=== PATIENT | female | born 1975 | race Caucasian/White ===

== ENCOUNTER 2021-03-17 07:38 | Outpatient (CLI) | payer OTHER, SELFPAY ==
--- NOTE | ~2021-03-17 | MM_ITS ---
EXAMINATION: MM screening spring BI w nghia HISTORY: Screening TECHNIQUE: Craniocaudal and mediolateral oblique 3-D tomosynthesis images were obtained and synthetic 2-D images were generated. CAD analysis was submitted and interpreted. COMPARISON: Comparison to multiple prior studies sequentially, with oldest reviewed study dated 05/11. BREAST PARENCHYMAL COMPOSITION: There are scattered areas of fibroglandular density. FINDINGS: There is no evidence of suspicious mass, calcification, or architectural distortion to sugg est malignancy in either breast. There has been no suspicious interval change. IMPRESSION: 1. No mammographic evidence of malignancy. 2. Recommend routine screening mammography in one year. BI-RADS Category 1: Negative Reviewed, dictated and finalized at location A.
== END 2021-03-17 07:39 | disposition home or self-care (01) ==
LOC: ANHIMG 07:41
PROVIDERS: PCP Family Medicine; Visit Provider Family Medicine
DX: Z12.31 Encounter for screening mammogram for malignant neoplasm of breast (principal)
CPT/HCPCS: 77063; 77067

== ENCOUNTER 2022-02-27 01:56 | Day surgery (SDC) | payer OTHER, SELFPAY ==
[2022-02-14 12:09] VITALS: BMI 32.5
[2022-02-27 09:30] VITALS: BP 136/71; PULSE 78; RESP 18; TEMP 35.8; O2SAT 99; BMI 31.9
--- NOTE | 2022-02-27 09:30 | WPDGICN ---
Assessment and Plan Assessment and plan (1) Encounter for screening colonoscopy: Code(s): Z12.11 - Encounter for screening for malignant neoplasm of colon Status: Acute Assessment and Plan: patient presents for neoplasia screening. Appears to be at average risk for colon polyps. Further recommendations will be given after endoscopy. (2) Rectal bleeding: Code(s): K62.5 - Hemorrhage of anus and rectum Status: Acute Assessment and Plan: Patient reports a few small episodes of bright red blood per rectum. This appears to be secondary to hemorrhoids in change in bowel habits. Plan is for fiber supplements in her diet. Further recommendations will be given after endoscopy. GI Consult Note Consult date/time: 02/27/22 09:30 HPI: Shanae Diego is a 46 year old female Presents for screening colonoscopy. Patient's current weight appetite bowel movements are normal. She denies abdominal pain.. Family history is noncontributory. Patient reports occasional bright red blood per rectum that has happened 3 times last month. She states this is associated with change in bowel habits and diarrhea stools. Patient has had no fever or recent travel. Review of Systems Review of Systems: All systems reviewed & are unremarkable except as noted in HPI and below PMFSH Past Medical History Medical History (Updated 02/27/22 @ 09:31 by Bright Santizo MD) Depression Diabetes type 2, controlled Hyperlipidemia Hypertension Surgical History Surgical History (Updated 02/24/22 @ 15:43 by North Granado DO) History of tubal ligation Family History Family History (Updated 04/12/17 @ 16:02 by DOCTOR UNKNOWN) Sibling Family history of gout Father Hypertension Grandparent Hypertension Family history of type 2 diabetes mellitus Family history of heart disease in male family member before age 55 Mother Family history of elevated blood lipids Family history of type 2 diabetes mellitus Family history of heart disease in male family member before age 55 Family history of osteoporosis Family history of malignant neoplasm of kidney Family history of diabetes mellitus in first degree relative Other Carcinoma of colon Depression Diabetes mellitus Family history of Alzheimer's disease Family history of cardiovascular disease Family history of chronic obstructive pulmonary disease Family history of congestive heart failure Family history of lung disease Family history of mental disorder Family history of obesity Social History Social History Smoking status: Never smoker Alcohol intake: never Substance use type: does not use Living arrangements: with family Spiritual care concerns: No Meds Home Medications and Allergies Home Medications Medication Instructions Recorded Confirmed Type aripiprazole 7.5 mg PO DAILY 02/14/22 02/27/22 History atorvastatin 20 mg PO DAILY 02/14/22 02/27/22 History cholecalciferol (vitamin D3) 350 mcg PO DAILY 02/14/22 02/27/22 History coenzyme Q10 [Co Q-10] 100 mg PO DAILY 02/14/22 02/27/22 History cranberry 1,000 mg PO BID 02/14/22 02/27/22 History diclofenac sodium 75 mg PO DAILY 02/14/22 02/27/22 History ertugliflozin [Steglatro] 15 mg PO DAILY 02/14/22 02/27/22 History famotidine [Pepcid] 20 mg PO DAILY 02/14/22 02/27/22 History lisinopril 10 mg PO DAILY 02/14/22 02/27/22 History loratadine 10 mg PO DAILY 02/14/22 02/27/22 History lysine [L-Lysine] 500 mg PO DAILY 02/14/22 02/27/22 History melatonin 20 mg PO HS PRN 02/14/22 02/27/22 History metformin 1,000 mg PO BID 02/14/22 02/27/22 History metformin 1,000 mg PO BID 02/14/22 02/27/22 History svybeeyojrzr-jff-mahb-FA-vit K 1 tablet PO DAILY 02/14/22 02/27/22 History [Adults Multivitamin] paroxetine HCl 40 mg PO DAILY 02/14/22 02/27/22 History sitagliptin [Januvia] 100 mg PO DAILY 02/14/22 02/27/22 History valacyclovir 1 mg PO DAILY 02/14/22 02/27/22 History Allerg
[2022-02-27] MEDS: LACTATED RINGERS 1,000 ML 150 ML IV CONT (09:41)
[2022-02-27 09:42] LABS: Glucose Point of Care 135 mg/dl (65-105)
--- NOTE | 2022-02-27 09:49 | WPDANESEPPF ---
Anes - Initial Pre Proc Eval Procedure: Operation Date: 02/27/22 10:30 Proposed Procedures p Screening Colonoscopy - Bright Santizo MD Date/Time: 02/27/22 09:49 Surgeon: Bright Santizo MD Pre Op Diagnosis: neoplasm screening Patient Data Age: 46 Gender: F Height: 1.75 m Weight: 98.1 kg Last Vital Signs Temp 96.5 F L 02/27/22 09:30 Pulse 78 02/27/22 09:30 Resp 18 02/27/22 09:30 BP 136/71 02/27/22 09:30 Pulse Ox 99 02/27/22 09:30 Allergies Allergy/AdvReac Type Severity Reaction Status Date / Time nitrofurantoin Allergy Mild Hives Verified 02/27/22 09:27 [From Macrobid] Penicillins Allergy Mild Hives Verified 02/27/22 09:27 Home Medications Medication Instructions Recorded Confirmed Type aripiprazole 7.5 mg PO DAILY 02/14/22 02/27/22 History atorvastatin 20 mg PO DAILY 02/14/22 02/27/22 History cholecalciferol (vitamin D3) 350 mcg PO DAILY 02/14/22 02/27/22 History coenzyme Q10 [Co Q-10] 100 mg PO DAILY 02/14/22 02/27/22 History cranberry 1,000 mg PO BID 02/14/22 02/27/22 History diclofenac sodium 75 mg PO DAILY 02/14/22 02/27/22 History ertugliflozin [Steglatro] 15 mg PO DAILY 02/14/22 02/27/22 History famotidine [Pepcid] 20 mg PO DAILY 02/14/22 02/27/22 History lisinopril 10 mg PO DAILY 02/14/22 02/27/22 History loratadine 10 mg PO DAILY 02/14/22 02/27/22 History lysine [L-Lysine] 500 mg PO DAILY 02/14/22 02/27/22 History melatonin 20 mg PO HS PRN 02/14/22 02/27/22 History metformin 1,000 mg PO BID 02/14/22 02/27/22 History metformin 1,000 mg PO BID 02/14/22 02/27/22 History zacffyrmwosr-jng-edze-FA-vit K 1 tablet PO DAILY 02/14/22 02/27/22 History [Adults Multivitamin] paroxetine HCl 40 mg PO DAILY 02/14/22 02/27/22 History sitagliptin [Januvia] 100 mg PO DAILY 02/14/22 02/27/22 History valacyclovir 1 mg PO DAILY 02/14/22 02/27/22 History Laboratory Tests 02/27/22 09:36 POC Capillary Glucose 135 mg/dl H mg/dl (65-105) Patient hx anesthesia problems: none Family hx anesthesia problems: none Results Review: All pre-operative results and documents have been reviewed as part of the pre-operative evaluation. [facility] Past Medical History Medical History (Updated 02/27/22 @ 09:31 by Bright Santizo MD) Depression Diabetes type 2, controlled Hyperlipidemia Hypertension Surgical History Surgical History (Updated 02/24/22 @ 15:43 by North Granado DO) History of tubal ligation Family History Family History (Updated 04/12/17 @ 16:02 by DOCTOR UNKNOWN) Sibling Family history of gout Father Hypertension Grandparent Hypertension Family history of type 2 diabetes mellitus Family history of heart disease in male family member before age 55 Mother Family history of elevated blood lipids Family history of type 2 diabetes mellitus Family history of heart disease in male family member before age 55 Family history of osteoporosis Family history of malignant neoplasm of kidney Family history of diabetes mellitus in first degree relative Other Carcinoma of colon Depression Diabetes mellitus Family history of Alzheimer's disease Family history of cardiovascular disease Family history of chronic obstructive pulmonary disease Family history of congestive heart failure Family history of lung disease Family history of mental disorder Family history of obesity Social History Social History Smoking status: Never smoker Alcohol intake: never Substance use type: does not use Living arrangements: with family Spiritual care concerns: No Anes - Eval Final PreProcedure Day of Procedure 02/27/22 09:49 Patient weight: obese Heart: regular rate and rhythm Lungs: clear to auscultation Airway: Mallampati scale class II Neurological: alert and oriented Last oral intake: >/= 8 hours ASA classification: III Emergent: no Anesthetic plan: proceed Anesthesia type and monitoring: general GIVS and standard monitoring Re
[2022-02-27 10:12] VITALS: BP 109/66; PULSE 83; RESP 22; O2SAT 98
[2022-02-27 10:22] VITALS: BP 125/75; PULSE 78; RESP 23; O2SAT 100
[2022-02-27 10:32] VITALS: BP 118/63; PULSE 76; RESP 22; O2SAT 100
== END 2022-02-27 10:40 | disposition home or self-care (01) ==
PROVIDERS: PCP Nurse Practitioner Family; Visit Provider Internal Medicine Gastroenterology
PROC: 0DJD8ZZ Inspection of Lower Intestinal Tract, Via Natural or Artificial Opening Endoscopic (ICD-10-PCS; CPT 45378; principal; 2022-02-27 10:30)
DX: Z12.11 Encounter for screening for malignant neoplasm of colon (principal); K62.5 Hemorrhage of anus and rectum; K57.30 Diverticulosis of large intestine without perforation or abscess without bleeding; K64.8 Other hemorrhoids; E11.9 Type 2 diabetes mellitus without complications; E78.5 Hyperlipidemia, unspecified; I10 Essential (primary) hypertension; F32.A Depression, unspecified
CPT/HCPCS: 45378; 82948; J2704; J7120

== ENCOUNTER 2024-04-22 07:17 | Outpatient (CLI) | payer OTHER, SELFPAY ==
--- NOTE | ~2024-04-22 | MM_ITS ---
EXAMINATION: MM screening spring BI w nghia HISTORY: Screening mammogram TECHNIQUE: Craniocaudal and mediolateral oblique 3-D tomosynthesis images were obtained and synthetic 2-D images were generated. CAD analysis was submitted and interpreted. COMPARISON: 03/17/2021, 06/16/2019 BREAST PARENCHYMAL COMPOSITION:Not Dense. The breasts are almost entirely fatty FINDINGS: No suspicious mass, calcification, or architectural distortion are identified in either ariadne ast to suggest malignancy. There has been no suspicious interval change. IMPRESSION: No mammographic evidence of malignancy. Recommend routine screening mammography in one year. BI-RADS Category 1: Negative Reviewed, dictated and finalized at location .
== END 2024-04-22 07:18 | disposition home or self-care (01) ==
LOC: ANHIMG 07:18
PROVIDERS: PCP Nurse Practitioner Family; Visit Provider Nurse Practitioner Family
DX: Z12.31 Encounter for screening mammogram for malignant neoplasm of breast (principal)
CPT/HCPCS: 77063; 77067

== ENCOUNTER 2025-05-07 08:08 | Outpatient (CLI) | payer OTHER, SELFPAY ==
--- NOTE | ~2025-05-07 | MM_ITS ---
EXAMINATION: MM screening [facility] BI w nghia HISTORY: Screening mammogram TECHNIQUE: Craniocaudal and mediolateral oblique 3-D tomosynthesis images were obtained and synthetic 2-D images were generated. CAD analysis was submitted and interpreted. COMPARISON: 04/22/2024, 03/17/2021, 06/16/2019 BREAST PARENCHYMAL COMPOSITION:Not Dense. There are scattered areas of fibroglandular density. FINDINGS: No suspicious mass, calcification, or architectural distortion are identified in either ariadne ast to suggest malignancy. There has been no suspicious interval change. IMPRESSION: No mammographic evidence of malignancy. Recommend routine screening mammography in one year. BI-RADS Category 1: Negative Reviewed, dictated and finalized at location .
--- OUTSIDE RECORDS SUMMARY | 2025-05-07 08:13 | XMS_ITS | Encounter Summary ---
Author Organization [facility] Address Pending sale to [facility] [place] [address] Care Team Providers Care Outpatient Physical Therapist Name Role Phone Kaylin Rosales Primary Care Provider [phone] Encounter Details Date Type Department Care Team (Late st Contact Info) Description 11/04/2021 Noemalifehart Message Enc [facility] Medical Group Family & Internal Medicine [facility] [address] [place] [address] Kaylin Rosales FNP [address] [place] [address] Question regarding CBC W/DIFF AUTOMATED Social History Tobacco Use Types Packs/Day Years Used Date Smoking Tobacco: Never Smokeless Tobacco: Never Alcohol Use Standard Drinks/Week Comments Not Currently 0 (1 standard drink = 0.6 oz pur e alcohol) PHQ-2 Answer Date Recorded PHQ-2 Score - If the patient scores above 3, please move on to questions 3-9 1 10/04/2021 Comments No Sex and Gender Information Value Date Recorded Sex Assigned at Female 01/23/2025 8:00 AM CDT Legal Sex Female 9:53 AM COMPENSATION AND BENEFITS MANAGER Gender Identity Female 11/07/2021 9:54 AM COMPENSATION AND BENEFITS MANAGER Sexual Orientation Straight 11/07/2021 9: 54 AM COMPENSATION AND BENEFITS MANAGER COVID-19 Exposure Response Date Recorded In the last month, have you been in contact with someone who was confirmed or suspected to have Coronavirus / COVID-19? No / Unsure 11/04/2021 7:04 AM COMPENSATION AND BENEFITS MANAGER documented as of this encounter Plan of Treatment Not on file documented as of this encounter Visit Diagnoses Not on filedocumented in this encounter Additional Health Concerns Infection Onset Date Last Indicated Resolved Time COVID-19 Rule Out 03/20/2022 03/20/2022 03/20/2022 12:32 PM CDT COVID-19 Rule Out 03/20/2022 03/20/2022 03/21/2022 2:07 PM CDT Assessment Noted Time PHQ-9 Depression Total Score: 1 10/04/20 21 2:55 PM COMPENSATION AND BENEFITS MANAGER documented as of this encounter Care Teams Outpatient Physical Therapist Relationship Specialty Start Date End Date Kaylin Rosales FNP [address] [place] [id number] PCP - General Nurse Practitioner Family 10/04/21 documented as of this encounter
--- OUTSIDE RECORDS SUMMARY | 2025-05-07 08:13 | XMS_ITS | Encounter Summary ---
Author Organization [facility] Address [facility] [place] [address] Care Team Providers Care Plywood Matcher Name Role Phone Kaylin Rosales Primary Care Provider [phone] Encounter Details Date Type Department Care Team (Late st Contact Info) Description 10/26/2023 MaXwaret Message Enc [facility] Medical Group Family & Internal Medicine [address] [address] Kaylin Rosales FNP [address] [place], [place] [id number] UTI Social History Tobacco Use Types Packs/Day Years Used Date Smoking Tobacco: Never Smokeless Tobacco: Never Comments:non smoker Alcohol Use Standard Drinks/Week Comments Never 0 (1 standard drink = 0.6 oz pur e alcohol) PHQ-2 Answer Date Recorded Patient Health Questionnaire-2 Score 0 04/30/2023 Comments No Sex and Gender Information Value Date Recorded Sex Assigned at Female 01/23/2025 8:00 AM CDT Legal Sex Female 9:53 AM SOLUTION CONSULTANT Gender Identity Female 11/07/2021 9:54 AM SOLUTION CONSULTANT Sexual Orientation Straight 11/07/2021 9: 54 AM SOLUTION CONSULTANT documented as of this encounter Plan of Treatment Not on file documented as of this encounter Visit Diagnoses Not on filedocumented in this encounter Additional Health Concerns Assessment Noted Time PHQ-9 Depression Total Score: 16 022 9:52 AM CDT documented as of this encounter Care Teams Plywood Matcher Relationship Specialty Start Date End Date Kaylin Rosales FNP [address] [place] [id number] PCP - General Nurse Practitioner Family 10/04/21 documented as of this encounter
--- OUTSIDE RECORDS SUMMARY | 2025-05-07 08:13 | XMS_ITS | Encounter Summary ---
Author Organization [facility] Address [facility] [place] [address] Care Team Providers Care Dental Practitioner Name Role Phone Kaylin Rosales Primary Care Provider [phone] Encounter Details Date Type Department Care Team (Late st Contact Info) Description 11/23/2023 Netlifthart Message Enc [facility] Medical Group Family & Internal Medicine [facility] [address] [place] [address] Kaylin Rosales FNP [address] [place], [place] [phone] [place] Social History Tobacco Use Types Packs/Day Years [...] AM CDT Legal Sex Female 9:53 AM LAST MODEL MAKER Gender Identity Female 11/07/2021 9:54 AM LAST MODEL MAKER Sexual Orientation Straight 11/07/2021 9: 54 AM LAST MODEL MAKER documented as of this encounter Plan of Treatment Not on file documented as of this encounter Visit Diagnoses Not on filedocumented in this encounter Additional Health Concerns Assessment Noted Time PHQ-9 Depression Total Score: 16 022 9:52 AM CDT documented as of this encounter Care Teams Dental Practitioner Relationship Specialty Start Date End Date Kaylin Rosales FNP [address] [place] [id number] PCP - General Nurse Practitioner Family 10/04/21 documented as of this encounter
--- OUTSIDE RECORDS SUMMARY | 2025-05-07 08:13 | XMS_ITS | Encounter Summary ---
Author Organization [facility] Address [facility]ly [facility] [place] [address] Care Team Providers Care Evaporator Repairer Name Role Phone Kaylin Rosales Primary Care Provider [phone] Encounter Details Date Type Department Care Team (Late st Contact Info) Description 11/19/2023 MyChart Message Enc [facility] Medical Group Family & Internal Medicine [facility] [address] [place] [address] Kaylin Rosales FNP [address] [place] [address] Trulicity Social History Tobacco Use Types Packs/Day Years [...] AM CDT Legal Sex Female 9:53 AM SOCIAL SECRETARY Gender Identity Female 11/07/2021 9:54 AM SOCIAL SECRETARY Sexual Orientation Straight 11/07/2021 9: 54 AM SOCIAL SECRETARY documented as of this encounter Progress Notes * Brooklyn Hollis MA - 11/20/2023 4:38 PM CST What are the directions. Does it increase after a week? [place] SECRETARY * TONY Mills - 11/20/2023 2:39 PM CST We can see if victoza is available it is a daily injectable GLP though [place] SECRETARY documented in this encounter Plan of Treatment Not on file documented as of this encounter Visit Diagnoses Not on filedocumented in this encounter Additional Health Concerns Assessment Noted Time PHQ-9 Depression Total Score: 16 022 9:52 AM CDT documented as of this encounter Care Teams Evaporator Repairer Relationship Specialty Start Date End Date Kaylin Rosales FNP [address] [place] [id number] PCP - General Nurse Practitioner Family 10/04/21 documented as of this encounter
--- OUTSIDE RECORDS SUMMARY | 2025-05-07 08:13 | XMS_ITS | Encounter Summary ---
Author Organization [facility] Address [address] [place] [address] Care Team Providers Care Wastewater Plant Operator Name Role Phone Kaylin Rosales TONY Primary Care Provider [phone] Reason for Referral * Surgical (Routine) - Authorized Specialty Diagnoses / Procedures Referred By Roby wilks Referred To Contact Diagnoses Varicose veins of lower extremity with pain, right Procedures Case request operating room: STAB PHLEBECTOMY (RIGHT LEG) Alfredo Romero MD [facility]. [address] [address] Phone: tel: fax: Referral ID Status Reason Start Date Expiration Date V isits Requested Visits Authorized [id number] Authorized 07/11/2024 07/11/2025 1 1 Encounter Details Date Type Department Care Team (Late st Contact Info) Description 07/11/2024 Prep for Procedure [facility], [facility] [address] [place], [place] [id number] Alfreod Romero MD [facility]. [facility] [address] [place] [address] Social History Tobacco Use Types Packs/Day Years Used Date Smoking Tobacco: Never Passive Smoke Exposure: Never Smokeless Tobacco: Never Comments:non smoker Alcohol Use Standard Drinks/Week Comments Never 0 (1 standard drink = 0.6 oz pur e alcohol) PHQ-2 Answer Date Recorded Patient Health Questionnaire-2 Score 0 03/28/2024 Comments No Sex and Gender Information Value Date Recorded Sex Assigned at Female 01/23/2025 8:00 AM CDT Legal Sex Female 9:53 AM CAR STARTER Gender Identity Female 11/07/2021 9:54 AM CAR STARTER Sexual Orientation Straight 11/07/2021 9: 54 AM CAR STARTER documented as of this encounter Plan of Treatment Scheduled Orders Name Type Priority Associated Diagnoses Orde r Schedule Case request operating room: STAB PHLEBECTOMY (RIGHT LEG) Case Request Routine Varicose veins of lower extremity with pain, right Once for 1 Occurrences starting 07/11/2024 until 07/11/2024 documented as of this encounter Results * (ABNORMAL) COMPREHENSIVE METABOLIC PANEL (09/01/2024 6:15 AM CAR STARTER) GLUCOSE 129(H) 70 - 99 MG/DL 09/01/2024 7:06 AM [facility] BUN 20(H) 7 - 18 MG/DL 09/01/2024 7:06 AM [facility] CREATININE S/P/B 0.80 0.55 - 1.02 MG/DL 09/01/2024 7:06 AM [facility] SODIUM S/P/B 140 136 - 145 MMOL/L 09/01/2024 7:06 AM [facility] POTASSIUM S/P/B 3.7 3.5 - 5.1 MMOL/L 09/01/2024 7:06 AM [facility] CHLORIDE S/P/B 107 97 - 115 MMOL/L 09/01/2024 7:06 AM [facility] CO2 26.9 21 - 32 MMOL/L 09/01/2024 7:06 AM [facility] CALCIUM S/P/B 9.3 8.5 - 10.1 MG/DL 09/01/2024 7:06 AM [facility] BILIRUBIN TOTAL S/P/B 0.9 0.2 - 1.2 MG/DL 09/01/2024 7:06 AM [facility] Comment: THIS ASSAY IS NOT RECOMMENDED FOR PATIENTS UNDERGOING TREATMENT WITH ELTROMBOPAG DUE TO THE POTENTIAL FOR FALSELY ELEVATED RESULTS. TOTAL PROTEIN S/P/B 7.0 6.4 - 8.2 G/DL 09/01/2024 7:06 AM [facility] ALBUMIN S/P/B 3.7 3.4 - 5.0 G/DL 09/01/2024 7:06 AM [facility] AST 26 15 - 37 U/L 09/01/2024 7:06 AM [facility] ALT 33 14 - 55 U/L 09/01/2024 7:06 AM [facility] ALKALINE PHOSPHATASE S/P/B 50 50 - 136 U/L 09/01/2024 7:06 AM [facility] ANION GAP 6.1 2 - 10 MMOL/L 09/01/2024 7:06 AM [facility] BUN CREATININE RATIO 25.1 6 - 26 09/01/2024 7:06 AM [facility] A/G RATIO 1.1 1.0 - 2.0 RATIO 09/01/2024 7:06 AM [facility] GFR ESTIMATE 90(L) >90 ML/MIN/1.7 3 M2 09/01/2024 7:06 AM [facility] Comment: NOTE: eGFR is not calculated for patients <18 years of age or gender unknown. This is an estimated GFR calculation using the new CKD EPI creatinine equation without race and so does not require a correction factor for race. This estimated GFR should not be used for calculating drug doses. 09/01/2024 6:15 AM CAR STARTER us Alfredo Romero MD LABORATORY Final Result [facility] [address] [place] [address], * (ABNORMAL) CBC W/DIFF AUTOMATED (09/01/2024 6:15 AM CAR STARTER) [facility] WBC 6.72 4.5 - 11.0 x10'3/uL 09/01/2024 6:41 AM [facility] RBC 3.95(L) 4.20 - 5.40 x10'6/uL 09/01/2024 6:41 AM [facility] HGB 12.3 12.0 - 16.0 G/DL 09/01/2024 6:41 AM [facility] HCT 37.1(L) 38.0 - 48.0 % 09/01/2024 6:41 AM [facility] MCV 93.9 81.0 - 99.0 FL 09/01/2024 6:41 AM [facility] MCH 31.1(H) 27.0 - 31.0 PG 09/01/2024 6:41 AM [facility] MCHC 33.2 32.0 - 36.0 G/DL 09/01/2024 6:41 AM [facility] RDW 12.9 11.5 - 14.5 % 09/01/2024 6:41 AM [facility] PLT 211 130 - 400 x10'3/uL 09/01/2024 6:41 AM [facility] MPV 11.2 9.3 - 12.2 FL 09/01/2024 6:41 AM [facility] DIFFERENTIAL TYPE AUTOMATED DIFFERENTIAL 09/01/2024 6:41 AM [facility] NEUTROPHILS % 62.4 % 09/01/2024 6:41 AM CAR STARTER [facility] LYMPHOCYTES % 28.6 % 09/01/2024 6:41 AM CAR STARTER [facility] MONOCYTES % 5.7 % 09/01/2024 6:41 AM [facility] EOSINOPHILS 2.1 % 09/01/2024 6:41 AM [facility] BASOPHILS 0.9 % 09/01/2024 6:41 AM CAR STARTER [facility] IMMATURE GRANS % 0.3 % 09/01/20 6:41 AM [facility] ABS. NEUTROPHILS 4.20 1.80 - 7.70 x10'3/uL 09/01/2024 6:41 AM [facility] ABS. LYMPHOCYTES 1.92 1.00 - 4.80 x10'3/uL 09/01/2024 6:41 AM CAR STARTER [facility] ABS. MONOCYTES 0.38 0.24 - 0.86 x10'3/uL 09/01/2024 6:41 AM [facility] ABS. EOSINOPHILS 0.14 0.04 - 0.36 x10'3/uL 09/01/2024 6:41 AM [facility] ABS. BASOPHILS 0.06 0.01 - 0.08 x10'3/uL 09/01/2024 6:41 AM [facility] ABS. IMMATURE GRANULOCYTES 0.02 0.00 - 0.49 x10'3/uL 09/01/2024 6:41 AM [facility] 09/01/2024 6:15 AM CAR STARTER us Alfredo Romero MD LABORATORY Final Result [facility] [address] [place], [place] [address] [phone] documented in this encounter Visit Diagnoses Diagnosis Varicose veins of lower extremity with pain, right- Primary documented in this encounter Additional Health Concerns Assessment Noted Time PHQ-9 Depression Total Score: 16 022 9:52 AM CDT documented as of this encounter Care Teams Wastewater Plant Operator Relationship Specialty Start Date End Date Kaylin Rosales FNP [address] [place] [id number] PCP - General Nurse Practitioner Family 10/04/21 documented as of this encounter
--- OUTSIDE RECORDS SUMMARY | 2025-05-07 08:13 | XMS_ITS | Encounter Summary ---
Author Organization [facility] Address [address] [place] [address] Care Team Providers Care Fiscal Services Director Name Role Phone Kaylin Rosales Primary Care Provider [phone] Encounter Details Date Type Department Care Team (Late st Contact Info) Description 07/11/2024 [employer] Message Enc [facility], [facility] [address], [place] [id number] Alfredo Romero MD [facility]. [facility] [address], [place] [id number] Procedure Social History Tobacco Use Types Packs/Day Years [...] AM CDT Legal Sex Female 9:53 AM DOLL REPAIRER Gender Identity Female 11/07/2021 9:54 AM DOLL REPAIRER Sexual Orientation Straight 11/07/2021 9: 54 AM DOLL REPAIRER documented as of this encounter Plan of Treatment Not on file documented as of this encounter Visit Diagnoses Not on filedocumented in this encounter Additional Health Concerns Assessment Noted Time PHQ-9 Depression Total Score: 16 022 9:52 AM CDT documented as of this encounter Care Teams Fiscal Services Director Relationship Specialty Start Date End Date Kaylin Rosales FNP [address] [place] [id number] PCP - General Nurse Practitioner Family 10/04/21 documented as of this encounter
--- OUTSIDE RECORDS SUMMARY | 2025-05-07 08:13 | XMS_ITS | Clinical Summary ---
Author Organization [facility] Address [address] [place] [address] Care Team Providers Care Product Managent Intern Name Role Phone Aries Rosales TONY Primary Care Provider [phone] Allergies Active Allergy Reactions Criticality Noted Date Comments Molds & Smuts Unknown 04/30/2023 Penicillins Rash Low 11/01/1983 Sulfamethoxazole-Trimethopri m Hives,Itching,Rash,Rednes s,Swelling Low 04/17/2022 Medications Multiple Vitamin (MULTIVITAMIN ADULT) Tab Take by mouth daily. Active Coenzyme Q10 (COQ10) 100 MG Cap Take by mouth daily. Active famotidine 10 MG tablet Take 1 tablet (10 mg total) by mouth daily. Active probiotic Cap capsule Take 1 capsule by mouth daily. Active L-Lysine HCl 1000 MG Tab Take 1,000 mg by mouth 2 (two) times daily. Active vitamin D3, cholecalciferol, 5000 UNITS capsule Take 1 capsule (125 mcg total) by mouth daily. Active atorvastatin (LIPITOR) 20 MG tabletIndications: Mixed hyperlipidemia TAKE 1 TABLET BY MOUTH NIGHTLY AT BEDTIME 30 tablet 6 11/10/19 25 Active rOPINIRole (REQUIP) 0.25 MG tabletIndications: Restless legs syndrome TAKE 1 TABLET BY MOUTH NIGHTLY NEEDED. 90 tablet 1 11/28/19 25 Active ARIPiprazole (ABILIFY) 15 MG tabletIndications: Moderate episode of recurrent major depressive disorder (CMS/HCC) TAKE 1 TABLET (15 MG TOTAL) BY MOUTH DAILY. 30 tablet 4 03/18/20 25 Active glyBURIDE (DIABETA) 5 MG tabletIndications: Uncontrolled type 2 diabetes mellitus with hyperglycemia (CMS/HCC [facility]) TAKE 2 TABLETS BY MOUTH TWICE A DAY WITH MEALS 120 tablet 4 03/18/20 25 Active PARoxetine (PAXIL) 40 MG tabletIndications: Current moderate episode of major depressive disorder without prior episode ([facility]) TAKE 1 TABLET BY MOUTH EVERY DAY IN THE MORNING 30 tablet 4 03/18/20 25 Active empagliflozin (JARDIANCE) 25 MG tabletIndications: Type 2 diabetes mellitus with diabetic polyneuropathy, with long-term current use of insulin ([facility]) TAKE 1 TABLET (25 MG TOTAL) BY MOUTH DAILY. 30 tablet 4 03/19/20 25 Active tirzepatide (MOUNJARO) 7.5 MG/0.5ML injectionIndicatio ns:Diabetes Mellitus INJECT 7.5 MG INTO THE SKIN EVERY 7 DAYS. INDICATIONS : DIABETES 6 mL 5 03/24/20 25 Active metFORMIN (GLUCOPHAGE) 1000 MG tabletIndications: Type 2 diabetes mellitus with diabetic polyneuropathy, with long-term current use of insulin ([facility]) TAKE 1 TABLET BY MOUTH TWICE A DAY WITH FOOD 60 tablet 2 04/15/20 25 Active lisinopril (PRINIVIL) 10 MG tabletIndications: Primary hypertension TAKE 1 TABLET BY MOUTH EVERY DAY 30 tablet 2 04/15/20 25 Active diclofenac EC (VOLTAREN) 75 MG tabletIndications: Chronic thumb pain, left TAKE 1 TABLET BY MOUTH TWICE A DAY 60 tablet 2 04/15/20 25 Active valACYclovir (VALTREX) 1 g tabletIndications: Recurrent cold sores TAKE 1 TABLET BY MOUTH EVERY DAY 30 tablet 2 04/16/20 25 Active hydrOXYzine (ATARAX) 25 MG tabletIndications: Primary insomnia TAKE 1-2 TABLETS (25-50 MG TOTAL) BY MOUTH NIGHTLY NEEDED (INSOMNIA). 60 tablet 1 04/16/20 25 Active ondansetron (ZOFRAN) 4 MG tabletIndications: Nausea TAKE 1 TABLET BY MOUTH EVERY 6 HOURS NEEDED FOR NAUSEA 9 tablet 04/22/20 25 Active metFORMIN (GLUCOPHAGE) 1000 MG tabletIndications: Type 2 diabetes mellitus with diabetic polyneuropathy, with long-term current use of insulin ([facility]) take 1 tablet by mouth twice a day with food 60 tablet 11 05/02/20 24 025 Discontinued hydrOXYzine (ATARAX) 25 MG tabletIndications: Primary insomnia TAKE 1-2 TABLETS (25-50 MG TOTAL) BY MOUTH NIGHTLY NEEDED (INSOMNIA). 60 tablet 11 05/02/20 24 025 Discontinued lisinopril (PRINIVIL) 10 MG tabletIndications: Primary hypertension TAKE 1 TABLET BY MOUTH EVERY DAY 30 tablet 5 10/09/20 24 025 Discontinued diclofenac EC (VOLTAREN) 75 MG tabletIndications: Chronic thumb pain, left TAKE 1 TABLET BY MOUTH TWICE A DAY 60 tablet 5 10/20/20 24 025 Discontinued valACYclovir (VALTREX) 1 g tabletIndications: Recurrent cold sores TAKE 1 TABLET BY MOUTH EVERY DAY 30 tablet 2 01/21/20 25 025 Discontinued ondansetron (ZOFRAN) 4 MG tabletIndications: Nausea TAKE 1 TABLET BY MOUTH EVERY 6 HOURS NEEDED FOR NAUSEA 9 tablet 03/26/20 25 025 Discontinued Active Problems Problem Noted Date Diagnosed Date Varicose veins of lower extremity with pain, rig ht 07/11/2024 Venous insufficiency of right leg 07/10/2024 Anxiety 04/02/2024 Restless legs syndrome 04/02/2024 Chronic diarrhea 04/02/2024 Varicose veins of both lower extremities with pa in 04/02/2024 Vitamin D deficiency, unspecified 04/02/2024 Moderate episode of recurrent major depressive d isorder 01/12/2022 Primary osteoarthritis involving multiple joints 01/12/2022 Recurrent cold sores 10/10/2021 Type 2 diabetes mellitus wit h diabetic polyneuropathy, without long-term current use of insulin ([facility]) 10/10/2021 Familial hypercholesterolemia 10/10/2021 Primary hypertension 10/10/2021 Mixed hyperlipidemia 10/10/2021 Chronic thumb pain, left 10/10/2021 Overweight with body mass in dex (BMI) of 29 to 29.9 in adult 10/10/2021 Resolved Problems Problem Noted Date Diagnosed Date Resolved Date Swelling of thumb, left 01/12/2022 06/0 02/2024 Uncontrolled type 2 diabetes mellitus with hyperglycemia ([facility]) 10/10/2021 04/25/20 24 Immunizations Immunization Administration Dates Next Due FLUCELVAX (ccIIV3, TRIVALENT, 0.5mL) 08/19/2024 Influenza Adult (Generic) 08/02/2021,08/02/2020 PFIZER COVID-19 (ORIGINAL FO RMULATION, PURPLE CAP) mRNA, LNP-S, PF, 30 MCG/0.3 ML DOSE 09/06/2021,11/12/2020,10/26/2020 Pneumococcal (Prevnar 20) 03/28/2024 Tdap (Adacel) 03/28/2024 Family History Medical History Relation Comments Diabetes Father Early Father age 50 suic rimma Hypertension Father Diabetes Maternal Grandmother Cancer Mother Kidney cancer Diabetes Mother Heart Disease Mother Hypertension Mother Diabetes Paternal Grandfather Early Paternal Grandfather at age 54 in his sleep Relation Status Comments Father Maternal Grandmother Mother Alive Paternal Grandfather Social History Tobacco Use Types Packs/Day Years Used Date Smoking Tobacco: Never Passive Smoke Exposure: Never Smokeless Tobacco: Never Comments:non smoker Alcohol Use Standard Drinks/Week Comments Never 0 (1 standard drink = 0.6 oz pur e alcohol) PHQ-2 Answer Date Recorded Patient Health Questionnaire-2 Score 0 01/23/2025 Comments No Sex and Gender Information Value Date Recorded Sex Assigned at Female 01/23/2025 8:00 AM CDT Legal Sex Female [address] Gender Identity Female 11/07/2021 9:[address] Sexual Orientation Straight 11/07/2021 9: [address] Last Filed Vital Signs Vital Sign Reading Time Taken Comments Blood Pressure 102/58 01/23/2025 8:00 AM CDT Pulse 76 01/23/2025 8:00 AM CDT Temperature 36.2 C (97.2 F) 01/23/2025 8:00 AM CDT Respiratory Rate 16 01/23/2025 8:00 AM CDT Oxygen Saturation 99% 01/23/2025 8:00 AM CDT Inhaled Oxygen Concentration - - Weight 88 kg (193 lb 14.4 oz) 01/23/2025 8:00 AM CDT Height 175.3 cm (5' 9) 01/23/2025 8:00 AM CDT Body Mass Index 28.63 01/23/2025 8:00 AM CDT Plan of Treatment Health Maintenance Due Date Last Done Comments Hepatitis B Vaccines (1 of 3 - 19+ 3-dose series) 1992 Annual Physical 09/08/2023 09/08/2022 Zoster Vaccines (1 of 2) 2023 Hemoglobin A1C 07/26/2025 01/23/2025, 09/28, 06/27/2024, Additional history exists Diabetes: Retinopathy Eye Exam 09/06/2025 09/06/2023, 08/31/2022 Cervical Cancer Screening Pap Smear (Age 30 to 64) Every 3 Years 09/08/2025 09/08/2022 COVID-19 Vaccine (6 - Pfizer risk season) 2025 08/19/2024, 08/06/2023, 09/06/2021, Additional history exists Postponed from 02/17/2025 (Going to Outside Clinic) Kidney Health Evaluation 01/23/2026 01/23/2025 Lipid Panel 01/23/2026 01/23/2025, 03/30, 06/01/2023, Additional history exists Mammogram Screening 04/22/2026 04/22/2024 Cervical Cancer Screening Pap with HPV Testing (Age 30 to 64) Every 5 Years 09/08/2027 09/08/2022 Cervical Cancer Screening with HPV 09/08/2027 Colorectal Cancer Screening Colonoscopy (10 Years) 02/28/2032 02/27/2022, 02/27/2022, 02/27/2022 DTaP, Tdap and Td Vaccines (2 - Td or Tdap) 03/28/2034 03/28/2024 Hepatitis C Completed 11/04/2021 Pneumococcal Vaccine: 50+ Years Completed 03/28/2024 PHQ-2 (Physician [place]) Completed 01/23/2025 Meningococcal B Vaccine Aged Out No l onger eligible based on patient's age to complete this topic Meningococcal Vaccine Aged Out No hever torsten eligible based on patient's age to complete this topic RSV Immunizations Under 20 Months Aged Out No longer eligible based on patient's age to complete this topic Procedures Procedure Name Priority Date/Time Associated Diagnosis Comments LIPID PANEL Routine 01/23/2025 9:13 AM CDT Type 2 diabetes mellitus with diabetic polyneuropathy, without long-term current use of insulin ([facility]) Familial hypercholesterolemia HEMOGLOBIN, GLYCOSYLATED Routine 01/23/2025 9:13 AM CDT Type 2 diabetes mellitus with diabetic polyneuropathy, without long-term current use of insulin ([facility]/HCC) Familial hypercholesterolemia MAMMOGRAM GENERIC (SCAN ORDER) 04/22/2024 DIABETIC RETINOPATHY EXAM (NEGATIVE)(SCAN ORDER) Routine 09/06/2023 HUMAN PAPILLOMAVIRUS, HIGH-RISK TYPES Routine 09/08/2022 12:[address] CYTOPATH CERV/VAG THIN LAYER Routine 09/08/2022 9:[address] Screening for human papillomavirus (HPV) Screening for cervical cancer COLONOSCOPY GENERIC (SCAN ORDER) 02/27/2022 HEPATITIS C ANTIBODY Routine 11/04/2021 7:[address] Need for hepatitis C screening test from Last 3 Months or Most Recently Relevant to Health Maintenance Results * (ABNORMAL) HEMOGLOBIN, GLYCOSYLATED (01/23/2025 9:13 AM CDT) HGB A1C 6.3(H) 4.5 - 6.2 % 01/23/2025 3:08 PM CDT [facility] ESTIMATED AVG GLUCOSE 134(H) 74 - 106 MG/DL 01/23/2025 3:08 PM CDT [facility] 01/23/2025 9:13 AM CDT us Aries Rosales PROPERTY DISPOSAL MANAGER LABORATORY Final Result [facility] [address] [place] [address], [place] [phone] * (ABNORMAL) LIPID PANEL (01/23/2025 9:13 AM CDT) CHOLESTEROL 117 <200 MG/DL 01/23/2025 3:46 PM CDT [facility] TRIG[facility] 102 <150 MG/DL 01/23/2025 3:46 PM CDT [facility] HDL 37(L) >40 MG/DL 01/23/2025 3:46 PM CDT [facility] LDL-C 60 <100 MG/DL 01/23/2025 3:46 PM CDT [facility] VLDL CALCULATION 20 5 - 28 MG/DL 01/23/2025 3:46 PM CDT [facility] CHOL/HDL RATIO 3.2 0.0 - 4.0 01/23/2025 3:46 PM CDT [facility] LDL/HDL 1.6 0.41 - 2.13 01/23/2025 3:46 PM CDT [facility] NON HDL CHOLESTEROL 80 <140 MG/DL 01/23/2025 3:46 PM CDT [facility] 01/23/2025 9:13 AM CDT Aries Rosales [employer] DISPOSAL MANA[employer]ORATORY Final Result [facility] [address] [place] [address], [place] [phone] * MAMMOGRAM GENERIC (SCAN ORDER) (04/22/2024) Anatomical Region Laterality Modality Other 04/22/2024 us [employer] Scanned SCANNING Final Resu lt * DIABETIC RETINOPATHY EXAM (NEGATIVE) (09/06/2023) [facility] [employer] Scanned SCANNING Final Resu lt [facility] * HUMAN PAPILLOMAVIRUS, HIGH-RISK TYPES (09/08/2022 12:[address]) SPEC DESCRIPTION CERVICAL/END OCERVICAL 09/11/2022 10:[address] [facility] HPV DNA HIGH RISK NEGATIVE NEGATIVE 09/11/2022 3:[address] [facility] Comment:SEE CYTOLOGY REPORT 09/08/2022 12:[address] us Aries JIMENEZ PATHOLOGY/CYTOLOGY ORDERABLES Final Result [facility] [address] [place] [address], * Cytopath Cerv/Vag Thin Layer (09/08/2022 9:[address]) THIN PREP PAP [facility] [address] [place] [address] Department of Pathology Pathology Report CERVICAL/VAGINAL PAP SMEAR REPORT Name: ASHLEE DIEGO Age: 1 1975 (Age: 46) Location: [facility] Sex: F Collected Date: 09/08/2022 [facility] #: [id number] Date Received: 09/11/2022 Date Reported: 09/13/2022 Provider: ARIES TINOCO INTERPRETATION CERVICAL/ENDOCERVI GIFTY: SATISFACTORY FOR EVALUATION. NEGATIVE FOR INTRAEPITHELIAL LESION OR MALIGNANCY. ATROPHY. NEGATIVE FOR HIGH RISK HPV. The FDA approved Aptima HPV assay is an in vitro nucleic acid amplification test for the qualitative detection of E6/E7 viral messenger RNA (mRNA) from 14 high-risk types of human papillomavirus (HPV) in cervical specimens. The high-risk HPV types detected by the assay include: 16,18,31,33,35,39, 45,51,52,56,58,59, 66, and 68. Electronically Signed Out By DARYL Gandhi (ASCP) CLINICAL HISTORY Z11.51 Z12.4 SCREENING PAP TEST ThinPrep Pap Test with HR HPV testing requested. Date of Last Menstrual Period: 02/23/22 Menstrual Status: Post-Menopausal SPECIMEN SUBMITTED CERVICAL/ENDOCERVI GIFTY Specimen Received:1 Thin Prep Vial, Image Assisted Pap (SMD) Please note: The Pap smear is not a diagnostic test. It is a screening test. Negative results on combined screening (Pap test and HPV-DNA) have a high negative predictive value (99.1-100 percent) for cervical cancer. The pap test is not effective in detecting cervical adenocarcinoma. [facility] 09/08/2022 9:[address] 09/11/2022 9:[address] Comment:CERVICAL/ENDOCERVICA L Aries Rosales [facility] PATHOLOGY/CYTOLOGY ORDERABLES Final Result Performing Organization Address [facility] Co de Phone Number [facility] [address] [place] [address], [place] [phone] * COLONOSCOPY GENERIC (02/27/2022) 02/27/2022 Narrative 02/27/2022 Ordered by an unspecified provider. us Documents Scanned SCANNING Final Result * HEPATITIS C ANTIBODY (11/04/2021 7:[address]) HEPATITIS C AB NON-REACTI VE NON-REACT JOE 11/04/2021 6:[address] [facility] Comment: ANTIBODIES TO HCV NOT DETECTED. DOES NOT EXCLUDE THE POSSIBILITY OF EXPOSURE TO HCV. 11/04/2021 7:[address] Aries Rosales [facility] Final Result Performing Organization Address City/[facility] Co de Phone Number [facility] [address] [place] [address], [place] [phone] from Last 3 Months or Most Recently Relevant to Health Maintenance Insurance [facility] Care Teams Product Managent Intern Relationship Specialty Start Date End Date Aries Rosales FNP [address] [place] [address] PCP - General Nurse Practitioner Family 10/04/21
--- OUTSIDE RECORDS SUMMARY | 2025-05-07 08:13 | XMS_ITS | Data Portability ---
Author Organization [facility], [facility] Address [address] [place] [address] Assessment No assessment recorded. Plan of Treatment Reminders Order Date Submit Date Provider Last Modified By Organization Details Last Modified Time Details Appointments None record ed. Lab None record ed. Referral None record ed. Procedures None record ed. Surgeries None record ed. Imaging None record ed. Medication Orders None record ed. Patient TargetsNo targets recorded. Patient InstructionsNo instructions recorded. Reason for Referral None Reported. Problems No Known Problems Procedures Surgical History Date Name Laterality Status Provider Name and Address Organization Details Recorded Time 09/08/20 Date of Last Pap Smear completed [facility] 03/20/2023 11:03:19 Sterilization completed [facility] 03/20/2023 11:03:49 Removal of tonsils completed [facility] 03/20/2023 11:08:22 Imaging Results None recorded. Procedure Notes None recorded. Medical Equipment None Reported. Allergies Allergen ID Allergen Name Allergen Category Reaction Reaction Severity Criticality Documentation Date Start Date Code Code System Note Provider Name and Address Organization Details Recorded Time 019352 Product containin g penicilli n (product) medicatio n Not available Not available Not available 03/20/2023 57494 8001 SNOMED [place] 11:03:26 998251 Substance with sulfonami de structure and antibacte rial mechanism of action (substanc e) medicatio n Not available Not available Not available 03/20/2023 28413 8003 SNOMED [facility] 3 11:03:26 382205 fish derived food,medi cation Not available Not available Not available 03/20/2023 37320 UNK Sylvia Lloyd null, [facility] 3 11:03:26 126602 mold extract environme nt Not available Not available Not available 03/20/2023 13087 8 RxNorm Sylvia Lloyd null, [facility] 3 11:03:26 Medications Name Sig Start Date Stop Date Status Note LastModified by Organization Details LastModified Time atorvastati n 20 mg tablet active Not Available Not Available Not Available glyburide 5 mg tablet TAKE 2 TABLETS BY MOUTH TWICE A DAY WITH MEALS active Not Available Not Available No t Available valacyclovi r 1 gram tablet TAKE 1 TABLET BY MOUTH EVERY DAY active Not Available Not Available No t Available hydrocodone 5 mg-acetamin ophen 325 mg tablet TAKE 1 TABLET BY MOUTH EVERY 6 HOURS NEEDED FOR PAIN 03/20 completed Not Available Not Available Not Available metronidazo le 500 mg tablet TAKE 1 TABLET BY MOUTH TWICE A DAY FOR 10 DAYS 03/20 completed Not Available Not Available Not Available ciprofloxac in 500 mg tablet TAKE 1 TABLET BY MOUTH TWICE A DAY FOR 7 DAYS 03/20 completed Not Available Not Available Not Available sulfamethox azole 800 mg-trimetho prim 160 mg tablet TAKE 1 TABLET BY MOUTH TWICE A DAY FOR 7 DAYS 03/20 completed Not Available Not Available Not Available cephalexin 500 mg capsule TAKE 2 CAPSULES BY MOUTH STAT, THEN 1 CAPSULE EVERY 6 HOURS UNTIL GONE 03/20 completed Not Available Not Available Not Available metformin 1,000 mg tablet TAKE 1 TABLET BY MOUTH TWICE A DAY WITH MEALS active Not Available Not Available No t Available lisinopril 10 mg tablet TAKE 1 TABLET BY MOUTH EVERY DAY active Not Available Not Available No t Available diclofenac sodium 75 mg tablet,jaida yed release TAKE 1 TABLET BY MOUTH TWICE A DAY active Not Available Not Available No t Available methylpredn isolone 4 mg tablets in a dose pack TAKE 6 TABLETS ON DAY 1 DIRECTED ON PACKAGE AND DECREASE BY 1 TAB EACH DAY FOR A TOTAL OF 6 DAYS 03/20 completed Not Available Not Available Not Available paroxetine 40 mg tablet TAKE 1 TABLET BY MOUTH EVERY DAY IN THE MORNING active Not Available Not Available No t Available aripiprazol e 15 mg tablet TAKE 1 TABLET (15 MG TOTAL) BY MOUTH DAILY. active Not Available Not Available No t Available Januvia 100 mg tablet TAKE 1 TABLET BY MOUTH EVERY DAY active Not Available Not Available No t Available Jardiance 25 mg tablet TAKE 1 TABLET (25 MG TOTAL) BY MOUTH DAILY. 03/20 completed Not Available Not Available Not Available Trulicity 1.5 mg/0.5 mL subcutaneou s pen injector INJECT 1.5 MG INTO THE SKIN EVERY 7 DAYS active Not Available Not Available No t Available Steglatro 15 mg tablet TAKE 1 TABLET BY MOUTH EVERY DAY active Not Available Not Available No t Available Vitals Date Recorded Body weight Body mass index (BMI) Body height Systolic And Diastolic Provider Name and Address Organization Details Last Updated DateTime 03/20/2023 56941.57 g 26.2 kg/m2 175.26 cm 120/82 mm[Hg] Sylvia Lloyd [facility] IV 03/20/2023 11:04:04 Social History Question Answer Notes LastModified by [employer] Details LastModified Time Tobacco Smoking Status Former Smoker Sylvia Lloyd anjali, [facility]ol[facility] IV 03/20/2023 11:03:43 What Type Of Diet Are You Following? REGULAR [email or web address] Information not available 03/20/2023 How Many Children Do You Have? 2 [email or web address] Information not available 03/20/2023 What Is Your Relationship Status? [email or web address] Information not available 03/20/2023 Are You Sexually Active? No [email or web address] Information not available 03/20/2023 Sex: Female Functional Status Question Answer Note LastModified by Organizat ion Details LastModified Time What is your level of alcohol consumption? None [email or web address] Information not available 03/20/2023 Do you or have you ever used e-cigarettes or vape? Never used electronic cigarettes [email or web address] Information not available 03/20/2023 What is your exercise level? Occasional [email or web address] Information not available 03/20/2023 Mental Status None recorded. Family History Relationship Description Onset Age of this Age Resolved Age Notes LastModified by Organization Details LastModified Time Mother Irritable bowel syndrome [email or web address] Not available 03/20 11:03:31 Mother Malignant neoplastic disease [email or web address] Not available 03/20 11:03:31 Mother Hypertensive disorder [email or web address] Not available 03/20 11:03:31 Mother Osteoporosis [email or web address] Not elena ilable 03/20/2023 11:03:31 Mother Diabetes mellitus [email or web address] Not available 03/20 11:03:32 Maternal Grandmother Diabetes mellitus [email or web address] Not available 03/20 11:03:32 Maternal Grandfather Diabetes mellitus [email or web address] Not available 03/20 11:03:32 Paternal Grandfather Diabetes mellitus [email or web address] Not available 03/20 11:03:32 Father Hypertensive disorder [email or web address] Not available 03/20 11:03:32 Father Diabetes mellitus [email or web address] Not available 03/20 11:03:32 Medical History Condition Response High Blood Pressure Y Diabetes Mellitus (non-insulin dependent ) Y Depression Y Chicken Pox Y Gynecological History Statement/Question Response Flow Heavy Frequency of Cycle (Q days) 28-30 Date of LMP 02/21/2022 Date of Last Pap Smear 09/08/2022 Duration of Flow (days) 5-7 Most Recent Mammogram 10/29/2024 Current Control Method Sterilizati on Age at Menarche 10 Obstetrics History GPAL:G 2 P 2 0 0 2 Type Value Full Term 2 Living 2 Total 2 Past Encounters Encounter ID Performer Location Encounter Start Date Encounter Closed Date Diagnosis/Indication Diagnosis SNOMED-CT Code Diagnosis ICD10 Code Diagnosis Note [id number] Opal Brewer MD [facility] [address] [place] [address] 03/20/2023 10:55:46 03/20/2023 15:58:39 Postmenopausal bleeding 12260373 N95.0 Likely atrophic bleeding based on history. Discussed precaution s and evaluation if bleeding returns. Patient is agreeable to plan. Health Concerns Section Related Observation LastModified by Organization Detai ls LastModified Time None Recorded Concern Status LastModified by Organization Details LastModified Time None Recorded Advance Directives Directive None Recorded Payers Insurance Date Sequence Insurance Name Policy Number Policy [place] Covered Member ID Guadarrama Member ID Guarantor Name 03/30/2023 1 [facility] [id number] Shanae Diego [id number] Shanae Diego Notes Date Note Type Note Provider Name and Address Organization Details Recorded Time 03/20/2023 text/html Irregular PeriodsReported bypatient.Onset/Timin g:present cycle Quality:light Associated Symptoms:no fatigue; no irritability; good quality of lifeNotes:Patient reports that she has had no period for a year. Then a little brown spotting at the end of January. No bleeding since. No health changes. No recent weight loss (large weight loss earlier in life with diet and exercise). States she is occasionally sexually active with her . She states her periods used to be heavy and irregular and then finally stopped. She states she did have some hot flashes that are mostly bearable and improving. She has no other menopausal concerns today. Shanae 47 y/o here for abnormal bleeding, LMP 02/21/2023 light bleeding since, control tubal ligation Opal Brewer MD [address] [facility], [place], [address], [facility] IV 03/20/2023 11:56:22 OBGyn Episode No OBEpisode recorded.
--- OUTSIDE RECORDS SUMMARY | 2025-05-07 08:13 | XMS_ITS | Encounter Summary ---
Author Organization [facility] Address [facility] [place] [address] Care Team Providers Care Cor[employer]or Redevelopment Manager Name Role Phone Kaylin Rosales Primary Care Provider [phone] Encounter Details Date Type Department Care Team (Late st Contact Info) Description 03/20/2022 Crisphart Message Enc [facility] Family & Internal Medicine [facility] [address] [place] [address] Kaylin Rosales FNP [address] [place] [address] Sore throat Social History Tobacco Use Types Packs/Day Years Used Date Smoking Tobacco: Never Smokeless Tobacco: Never Alcohol Use Standard Drinks/Week Comments Not Currently 0 (1 standard drink = 0.6 oz pur e alcohol) PHQ-2 Answer Date Recorded PHQ-2 Score - If the patient scores above 3, please move on to questions 3-9 3 01/27/2022 Comments No Sex and Gender Information Value Date Recorded Sex Assigned at Female 01/23/2025 8:00 AM CDT Legal Sex Female 9:53 AM [employer] Gender Identity Female 11/07/2021 9:54 AM [employer] Sexual Orientation Straight 11/07/2021 9: 54 AM [employer] COVID-19 Exposure Response Date Recorded In the last 10 days, have yo u been in contact with someone who was confirmed or suspected to have Coronavirus/COVID-19? Unable to assess 03/20/2022 10:38 AM CDT documented as of this encounter Plan of [...] documented as of this encounter Care Teams [employer]evelopment Manager Relationship Specialty Start Date End Date Kaylin Rosales FNP [address] [place] [id number] PCP - General Nurse Practitioner Family 10/04/21 documented as of this encounter
== END 2025-05-07 08:09 | disposition home or self-care (01) ==
LOC: ANHIMG 08:11
PROVIDERS: PCP Nurse Practitioner Family; Visit Provider Nurse Practitioner Family
DX: Z12.31 Encounter for screening mammogram for malignant neoplasm of breast (principal)
CPT/HCPCS: 77063; 77067